=== PATIENT | female | born 1955 | race Caucasian/White ===

== ENCOUNTER 2016-09-04 08:16 | Inpatient (IN) | payer BC ==
[2016-08-18 11:06] VITALS: BMI 28.0
--- NOTE | 2016-08-18 11:47 | PAT Medication Instructions ---
Service Date Aug 18, 2016. Current Home Medication List Alendronate/Cholecalciferol (Fosamax+D 70MG/2800 Iu), 1 TABLET PO WK Cholecalciferol (Vitamin D3), 1 TAB PO BID Ibuprofen (Advil), 400-600 MG PO PRN Multivitamin (Multivitamin), 1 TAB PO DAILY Medication Instructions For Your Scheduled Surgery - Hold the following medications 7-10 days prior to surgery per surgeon instructions: Ibuprofen (Advil), 400-600 MG PO PRN - Hold the following medications the morning of surgery: Multivitamin (Multivitamin), 1 TAB PO DAILY Cholecalciferol (Vitamin D3), 1 TAB PO BID Alendronate/Cholecalciferol (Fosamax+D 70MG/2800 Iu), 1 TABLET PO WK - Take the following medications the morning of surgery with a sip of water: Tylenol (if needed) - Take the following medications as scheduled the night before surgery: Cholecalciferol (Vitamin D3), 1 TAB PO BID Tylenol (if needed) If you have any questions please call us at [phone] or [phone] ( [place]) or [phone]
--- NOTE | 2016-08-18 12:18 | DIAGNOSTIC IMAGING REPORT ---
CHEST 2 VIEWS ROUTINE CLINICAL HISTORY: Preoperative chest COMPARISON STUDY: No previous studies for comparison. FINDINGS: The cardiac and mediastinal contours are normal. There is no evidence of focal pulmonary consolidation. There is no evidence of failure. No pleural effusions are visualized.[ There is a thoracolumbar scoliosis. IMPRESSION: No active disease in the chest. Electronically signed by: Zbigniew Harris M.D. 08/18/2016 12:16 PM Dictated Date/Time: 08/18/2016 12:16 PM
[2016-08-18 12:21] LABS: BASO % 0.1 %; BASO ABS # 0.01 K/uL (0-0.2); COMPLETE YES; EOS % 0.3 %; IG% 0.1 %; LYMPH % 24.8 %; LYMPH ABS # 1.88 K/uL (1.2-3.4); MEAN CORPUSCULAR HGB CONC 35.1 g/dl (32-36); MEAN PLATELET VOLUME 9.5 fL (7.4-10.4); MONO % 4.6 %; NEUT % 70.1 %; PLATELET COUNT 238 K/uL (130-400); RED BLOOD COUNT 4.15 M/uL (4.2-5.4); WHITE BLOOD COUNT 7.57 K/uL (4.8-10.8)
[2016-08-18 12:26] LABS: URINE APPEARANCE CLEAR (CLEAR); URINE BILIRUBIN NEG (NEG); URINE COLOR YELLOW; URINE NITRITE NEG (NEG); URINE SPECIFIC GRAVITY 1.004 (1.000-1.030); UROBILINOGEN NEG (NEG); ZZUR CULT IF INDIC CLEAN CATCH NO
[2016-08-18 12:34] LABS: PARTIAL THROMBOPLASTIN RATIO 1.1; PROTHROMBIN TIME (PATIENT) 10.3 SECONDS (9.0-12.0)
[2016-08-18 12:39] LABS: MANUAL MICROSCOPIC REQUIRED? NO; REVIEW REQ? NO
[2016-08-18 13:04] LABS: BUN/CREATININE RATIO 18.2 (10-20); CALCIUM 8.6 mg/dl (8.5-10.1); CREATININE 0.63 mg/dl (0.60-1.20); POTASSIUM 3.8 mmol/L (3.5-5.1)
--- NOTE | 2016-08-31 09:09 | HISTORY & PHYSICAL EXAMINATION ---
DATE OF ADMISSION: 09/04/2016 CHIEF COMPLAINT: Left hip pain. HISTORY OF PRESENT ILLNESS: Ms. Parmar is a 61-year-old female with a 4-year history of pain in her left hip. The patient describes decreased mobility and stiffness. She rates it as 6/10. She has pain with her daily activities. She has limited standing and walking tolerance. Pain is worse with weightbearing. The patient takes anti-inflammatories without relief. She has failed conservative treatment and is scheduled for left hip replacement. PAST MEDICAL HISTORY: Negative. She denies heart disease, diabetes or DVT. PAST SURGICAL HISTORY: Tonsillectomy, inguinal hernia repair and excision of sacral cyst. SOCIAL HISTORY: The patient drinks 5 drinks per week. She smokes 4 cigarettes per day x20 years. 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 FAMILY HISTORY: Negative for DVT. MEDICATIONS: Alendronate 70 mg weekly, vitamin D3 2,000 international units b.i.d., ibuprofen 200 mg t.i.d. ALLERGIES: None. REVIEW OF SYSTEMS: See HPI. Ten other systems reviewed, all negative. PHYSICAL EXAMINATION: VITAL SIGNS: Height 5 foot 2, weight 155 pounds. BMI 28. GENERAL: This is a well-developed, well-nourished female who is alert and oriented x3. Mood and affect are appropriate. HEAD, EYES, EARS, NOSE, AND THROAT: Normocephalic, atraumatic. Mucous membranes are moist and intact. NECK: Supple without lymphadenopathy. HEART: Regular rate and rhythm without murmurs, rubs or gallops. LUNGS: Clear to auscultation without wheezes or rhonchi. ABDOMEN: Soft and nontender. Bowel sounds are equal and active. EXTREMITIES: No ecchymosis, redness or warmth. She has decreased range of motion. Pain is reproduced in the groin with motion. She is neurovascularly intact with +5/5 strength. She walks with an antalgic gait. X-RAY EXAMINATION: AP and lateral views show severe joint space narrowing and osteophyte formation in the left hip. 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 IMPRESSION: Degenerative joint disease, left hip. PLAN: The patient will be admitted for a direct anterior left total hip arthroplasty. We will plan on aspirin for DVT prophylaxis. The patient has [facility] for home physical therapy. PCP is Narcisa Thompson in [place].
[2016-09-04] VITALS (9 sets, daily range): BP systolic 95–149; BP diastolic 52–93; PULSE 68–80; TEMP 36.3–36.8; O2SAT 95–99; Ht 157.5 cm; Wt 69.5 kg
[~2016-09-04] VITALS: Ht 157.5 cm; Wt 69.5 kg
[2016-09-04] MEDS: TRANEXAMIC ACID INJ 1,000 MG in SODIUM CHLORIDE 0.9% 100ML 100 ML IV SCH ×2 (06:30→10:05)
[~2016-09-04 08:16] MED LIST: ACETAMINOPHEN 500 MG TAB PO SCH; ATROPINE SULFATE 0.1 MG/ML 5ML SYR IV PRN; BUPIVACAINE 0.5 % 5 MG/1 ML PF 10ML VIAL ONE; CEFAZOLIN 2000 MG/60 ML D5W 60 ML IV SCH; CHOL20007 PO; CeleBREX 200 MG CAP PO SCH; DEXAMETHASONE 4 MG TAB PO SCH; EpHEDrine SULFATE INJ 50 MG/ML AMP IV PRN; FAMOTIDINE 20 MG TAB PO SCH; FENTANYL CITRATE INJ 50 MCG/1 ML 2 ML VIAL IV PRN; FENTANYL CITRATE INJ 50 MCG/1 ML 2 ML VIAL ONE; FSMD/70 PO; GABAPENTIN 300 MG CAP PO SCH; IBUP-1050 PO; LACTATED RINGER'S 1000ML 1,000 ML IV SCH; LACTATED RINGER'S 1000ML 500 ML IV ONE; METOCLOPRAMIDE HCL 10 MG TAB PO SCH; MIDAZOLAM HCL 1 MG/ML 2ML VIAL ONE; MULT-506 PO; ONDANSETRON INJ 2 MG/ML 2 ML VIAL IV PRN; OXYCODONE HCL 10 MG TABCR (OXYCONTIN) PO SCH; POLYMYXIN B SULFATE 100,000 UNITS in NSS 100ML IR SCH; PROPOFOL IV EMULSION 10 MG/ML 20 ML VIAL IV ONE; ROPIVACAINE 5MG/ML 30 ML 150 MG, BUPIVACAINE/EPINEPHR 0.5% MPF 30 ML, KETOROLAC TROMETH... INFIL SCH; VANCOMYCIN INJ 400 MG in NSS 100ML IR SCH
--- NOTE | 2016-09-04 09:18 | History & Physical Bridge Note ---
H&P Re-Evaluation Bridge Note: I have examined the patient, reviewed the History & Physical and in the interval since the performance of the History & Physical I have noted the following changes of clinical significance: No changes noted
[2016-09-04] MEDS ORDERED: ORTHO JOINT ANESTHETIC ONE (09:49)
[2016-09-04] MEDS ORDERED: PHENYLEPHRINE 100MCG/ML 5ML SYR ONE (10:46)
[2016-09-04] MEDS ORDERED: MIDAZOLAM HCL 1 MG/ML 2ML VIAL ONE (10:52)
[2016-09-04] MEDS ORDERED: BACITRACIN 50000 UNIT VIAL IR ONE (11:04)
[2016-09-04] MEDS ORDERED: POVIDONE-IODINE OP SOLN 30 ML BTL TOP ONE (11:04)
[2016-09-04] MEDS ORDERED: EpHEDrine SULFATE 50MG/5ML SYR ONE (11:47)
--- NOTE | 2016-09-04 11:53 | [facility] Post Operative Brief Note ---
Immediate Operative Summary Operative Date Sep 04, 2016. Pre-Operative Diagnosis Degenerative joint disease left hip Post-Operative Diagnosis same as preoperative Procedure(s) Performed Left Total Hip Arthroplasty, Direct Anterior Approach Surgeon Dr. Thorne Chief Medical Director Surgeon(s) Yael Moran PA-C Estimated Blood Loss 75ML Findings SEVERE DZ Specimens A. left femoral head Complication(s) None Disposition Recovery Room / PACU
[2016-09-04] MEDS ORDERED: METOCLOPRAMIDE HCL INJ 5 MG/ML 2 ML VIAL IV PRN (12:00)
[2016-09-04] MEDS ORDERED: BISACODYL 10 MG SUPP PR PRN (12:00)
[2016-09-04] MEDS ORDERED: OXYCODONE HCL IR 5 MG TAB (IMMEDIATE RELEASE) PO PRN (12:00)
[2016-09-04] MEDS ORDERED: TRAMADOL HCL 50 MG TAB PO PRN (12:00)
[2016-09-04] MEDS ORDERED: DiphenhydrAMINE HCL 50 MG/ML VIAL IV PRN (12:00)
[2016-09-04] MEDS ORDERED: ALUMINUM/MAGNESIUM/SIMETH (MAALOX MAX) 30 ML UDC PO PRN (12:00)
[2016-09-04] MEDS ORDERED: SOD PHOSPHATE/SOD BIPHOSPHATE ENEMA 132 ML BTL PR PRN (12:00)
[2016-09-04] MEDS ORDERED: MoRPHine SULFATE 2 MG/ML CARP IV PRN (12:00)
[2016-09-04] MEDS ORDERED: ONDANSETRON INJ 2 MG/ML 2 ML VIAL IV PRN (12:00)
[2016-09-04] MEDS ORDERED: ZOLPIDEM TARTRATE 5 MG TAB PO PRN (12:00)
[2016-09-04] MEDS ORDERED: MAGNESIUM HYDROXIDE SUSP 30 ML UDC PO PRN (12:00)
--- NOTE | 2016-09-04 12:09 | DIAGNOSTIC IMAGING REPORT ---
INTRAOPERATIVE FLUOROSCOPIC IMAGE OF THE LEFT HIP CLINICAL HISTORY: Left hip arthroplasty COMPARISON STUDY: No previous studies for comparison. FLUOROSCOPY TIME: 20 seconds. FINDINGS: A single AP fluoroscopic image of the left hip demonstrates anatomic alignment of left hip arthroplasty. No fracture is identified. IMPRESSION: Expected intraoperative findings during left hip arthroplasty. Electronically signed by: Erik Billy M.D. 09/04/2016 12:07 PM Dictated Date/Time: 09/04/2016 12:06 PM
--- NOTE | 2016-09-04 12:53 | DIAGNOSTIC IMAGING REPORT ---
LEFT PELVIS/UNILATERAL HIP 1 VIEW CLINICAL HISTORY: Left hip degenerative arthritis. Arthroplasty. COMPARISON: Intraoperative fluoroscopic images performed earlier today. FINDINGS: Alignment of the total left hip arthroplasty is anatomic. There is no fracture or unexpected radiopaque foreign body. Drain is in place. There is an acetabular screw. IMPRESSION: Expected findings following total left hip arthroplasty. Electronically signed by: Erik Billy M.D. 09/04/2016 12:51 PM Dictated Date/Time: 09/04/2016 12:50 PM
--- NOTE | 2016-09-04 13:00 | Anesthesiology Progress Note ---
Anesthesia Post Op Note Date & Time Sep 04, 2016 at 13:00 Vital Signs Pain Intensity: 0 Vital Signs Past 12 Hours Date Time Temp Pulse Resp B/P Pulse Ox O2 Delivery O2 Flow Rate FiO2 09/04/16 12:33 102/65 09/04/16 12:32 78 16 09/04/16 12:32 76 16 94 09/04/16 12:28 114/60 09/04/16 12:27 76 14 93 09/04/16 12:27 76 14 09/04/16 12:23 107/63 09/04/16 12:22 86 17 97 09/04/16 12:22 83 17 09/04/16 12:18 116/71 09/04/16 12:17 79 17 09/04/16 12:17 78 17 96 09/04/16 12:17 36.2 89 16 102/67 96 Nasal Cannula 10 09/04/16 08:40 36.8 80 20 149/93 95 Room Air Notes Mental Status: alert / awake / arousable, participated in evaluation Pt Amnestic to Procedure: Yes Nausea / Vomiting: adequately controlled Pain: adequately controlled Airway Patency, RR, SpO2: stable & adequate BP & HR: stable & adequate Hydration State: stable & adequate Neuraxial Anesthesia: was administered, sensory block is resolving Anesthetic Complications: no major complications apparent
[2016-09-04] MEDS: D5W AND 1/2NSS + 20MEQ KCL 1,000 ML IV SCH ×2 (14:58→23:35)
[2016-09-04] MEDS: KETOROLAC TROMETHAMINE 30 MG/ML VIAL IV. SCH ×2 (17:49→23:35)
[2016-09-04] MEDS: CEFAZOLIN IV 2,000 MG in DEXTROSE 5% 50ML 50 ML IV SCH (17:49)
--- NOTE | 2016-09-04 18:00 | OPERATIVE REPORT ---
DATE OF OPERATION: 09/04/2016 PREOPERATIVE DIAGNOSIS: Degenerative arthritis, left hip. POSTOPERATIVE DIAGNOSIS: Same. PROCEDURE: Left total hip replacement. SURGEON: Jakob Thorne M.D. [employer] MEMBER: COREY Bacon ANESTHESIA: Spinal. BLOOD LOSS: 75 mL. REPLACEMENT FLUIDS: 1500 mL crystalloid. DRAINS: Hemovacs x1. CULTURES: None. COMPLICATIONS: None. COMPONENTS USED: [employer]hew polar hip system: Acetabulum size 50, femur size 6 standard offset, femoral head, +4, 32 mm. NOTE: COREY Bacon was present and assisted throughout due to the complicated nature of this case. She helped with preparation and set up, first assisted throughout and personally closed the muscle fascial, subcutaneous and skin layers and applied the postop dressing. DESCRIPTION: Following satisfactory spinal, the patient was supine. The right leg was placed in the well leg cartwright, the left leg in the traction device. The leg was prepared with ChloraPrep and draped sterilely. Following a surgical time-out, an anterior approach in the interval between the sartorius and tensor muscles was completed, the circumflex femoral vessels were identified and ligated and an anterior capsulotomy performed exposing a severely arthritic femoral neck and head. The femoral neck and head were trimmed and removed. The acetabular self-retaining retractor was placed. Acetabular preparation and reaming was completed and under fluoroscopic guidance, a 50 shell was impacted into an anatomic position and secured with a dome screw. Local anesthetic was placed and after irrigation, the poly liner was placed. The femur was placed into a position of external rotation, extension and adduction. The femoral canal was prepared up to the size 6. A trial reduction with a +4 head showed equalization of leg lengths using fluoroscopic landmarks and good fit and fill of the proximal canal using fluoroscopic evaluation. The hip was dislocated. The trial component removed. The final implant was placed and the wound was irrigated. The hip was reduced with fluoroscopy confirming the position. A Betadine soak was performed. After 5 minutes, the Betadine was irrigated. The capsule was closed with 1 Vicryl interrupted. A drain was placed. The fascia was closed with a running suture of 1 Vicryl, the subcutaneous tissues with 2-0 Vicryl and the skin with a running subcuticular stitch of 3-0 V-Loc. Dermabond and a dry dressing were applied. The patient was returned to her bed in stable condition. I attest to the content of the Intraoperative Record and any orders documented therein. Any exceptio ns are noted below.
[2016-09-04] MEDS ORDERED: TRANEXAMIC ACID INJ 1,000 MG in SODIUM CHLORIDE 0.9% 100ML 100 ML IV SCH (18:30)
[2016-09-04] MEDS ORDERED: SENNA 8.6 MG TAB PO SCH (21:00)
[2016-09-04] MEDS: ASPIRIN 81 MG ECTAB PO SCH (21:06)
[2016-09-04] MEDS: ACETAMINOPHEN 500 MG TAB PO SCH (21:35)
[2016-09-05] MEDS: CEFAZOLIN IV 2,000 MG in DEXTROSE 5% 50ML 50 ML IV SCH (01:41)
[2016-09-05] MEDS: KETOROLAC TROMETHAMINE 30 MG/ML VIAL IV. SCH ×2 (05:40→11:22)
[2016-09-05] MEDS: ACETAMINOPHEN 500 MG TAB PO SCH ×2 (05:40→13:29)
[2016-09-05 06:00] LABS: BASO % 0.1 %; BASO ABS # 0.01 K/uL (0-0.2); COMPLETE YES; HEMATOCRIT 30.8 % (37-47); IG% 0.2 %; LYMPH % 8.2 %; LYMPH ABS # 1.07 K/uL (1.2-3.4); MEAN CELL VOLUME 95.7 fL (80-100); MEAN CORPUSCULAR HEMOGLOBIN 33.2 pg (25-34); MEAN CORPUSCULAR HGB CONC 34.7 g/dl (32-36); MONO % 9.3 %; NEUT % 82.2 %; PLATELET COUNT 194 K/uL (130-400); RED BLOOD COUNT 3.22 M/uL (4.2-5.4); WHITE BLOOD COUNT 13.08 K/uL (4.8-10.8)
[2016-09-05 06:32] LABS: BUN/CREATININE RATIO 18.5 (10-20); CALCIUM 7.7 mg/dl (8.5-10.1); CREATININE 0.64 mg/dl (0.60-1.20); POTASSIUM 4.1 mmol/L (3.5-5.1)
[2016-09-05 07:00] VITALS: BP 102/63; PULSE 67; TEMP 36.7; O2SAT 98
--- NOTE | 2016-09-05 08:06 | Anesthesiology Progress Note ---
Anesthesia Post Op Note Date & Time Sep 05, 2016 at 08:06 Vital Signs Vital Signs Past 12 Hours Date Time Temp Pulse Resp B/P Pulse Ox O2 Delivery O2 Flow Rate FiO2 09/05/16 07:00 36.7 67 16 102/63 98 Room Air 09/04/16 23:30 Room Air 09/04/16 23:23 36.6 68 16 95/52 98 Room Air Notes Mental Status: alert / awake / arousable, participated in evaluation Pt Amnestic to Procedure: Yes Nausea / Vomiting: adequately controlled Pain: adequately controlled Airway Patency, RR, SpO2: stable & adequate BP & HR: stable & adequate Hydration State: stable & adequate Neuraxial Anesthesia: was administered, sensory block resolved Anesthetic Complications: no major complications apparent
--- NOTE | 2016-09-05 08:17 | Discharge Instructions ---
Discharge Instructions Admission Reason for Admission: Left Hip Degenerative Arthritis Discharge Discharge Diagnosis / Problem: SP LEFT MOE Discharge Goals Goal(s): Decrease discomfort, Improve function, Increase independence Activity Recommendations Activity Limitations: per Instructions/Follow-up section . Instructions / Follow-Up Instructions / Follow-Up ACTIVITY RECOMMENDATIONS: SELF CARE INSTRUCTIONS AFTER TOTAL HIP REPLACEMENT : Direct Anterior Approach Until the incision and soft tissues around your hip have healed, there is a possibility that the hip prosthesis could dislocate. A. Hip flexion ( Up & Down out of chair or steps ) may be difficult. This is normal. B. Numbness in front of the thigh is also normal for a few weeks. C. Use hand rails when walking on stairs. D. Wear low heeled shoes with non-slip soles. E. Be sure that your floors are free of things that could trip you - throw rugs , electrical cords, small objects. Avoid wet and waxed floors, especially with crutches and canes. F. Try to walk several times a day with rest periods between. G. Continue with all the exercises taught to you in the hospital. Again, make walking a part of your daily routine. SPECIAL CARE INSTRUCTIONS: VERY IMPORTANT TO READ AND REVIEW A. You may still be at risk for phlebitis and blood clots. 1. Wear surgical stockings (ROSARIO hose) for 2 weeks after surgery to improve circulation and reduce swelling. 2. Take Aspirin 81mg twice daily for 4 weeks or as directed by your doctor. This is your blood thinner. 3. High risk patients may be prescribed a stronger blood thinner if necessary. 4. If you are on Coumadin normally, your family doctor/fish icer should monitor your blood work. Expect a phone call the day of or the day after bloodwork is drawn to adjust your dosage. B. You must take antibiotics before having dental work, bladder, bowel and other surgery. Your doctor will provide you with a permanent card to carry describing precautions. C. Call [facility] if you have a fever, redness or swelling around the incision, cloudy drainage from incision, or sudden increase in pain in your hip, not relieved by your regular pain medication. D. Please call the office at if you have any concerns or questions about your operation or recovery. * YOU MAY SHOWER, NO TUB BATHS UNTIL CLEARED BY YOUR DOCTOR. - Keep an extra close eye on the top portion of your incision. Be sure to keep clean & dry. * WEAR ROSARIO HOSE 20 HOURS PER DAY FOR 2 WEEKS. * YOU MAY PROGRESS FROM A WALKER, TO A CANE, TO INDEPENDENT AT YOUR OWN PACE. * MOST PATIENTS WILL HAVE HOME NURSING FOR THERAPY. IF YOU DECIDE TO DO OUTPATIENT PHYSICAL THERAPY, PLEASE SCHEDULE THIS 3 TIMES PER WEEK. * DERMABOND Prineo- This is a mesh tape dressing that is covered with glue. It should remain in place until the incision is properly healed, usually 10-14 days. This dressing is designed to naturally slough off. You may trim the excess mesh tape as it peels off. Incision may be briefly wet in a shower. Dry immediately by blotting with a clean, dry towel. Do not bath or swim until instructed by your doctor. Do not scratch, rub, or pick at the dressing. Do not apply any topical ointments or lotions until dressing is completely removed and/or instructed by your doctor. There may be a small piece of suture material at one end of your incision. Do not pull or trim this. If it is bothersome or catching on clothing, you may cover it with a band-aid. FOLLOW UP VISIT: If appointment is not already scheduled: Please call [facility] to make a follow-up appointment for 2 weeks after your surgery at . Current Hospital Diet Patient's current hospital diet: Regular Diet Discharge Diet Recommended Diet: Regular Diet Procedures Procedures Performed: Left Total Hip Arthroplasty, Direct Anterior Approach Pending Studies Studies pending at discharge: no Medical Emergencies . Who to Call and When: Medical Emergencies: If at any time you feel your situation is an emergency, please call 911 immediately. . Non-Emergent Contact Non-Emergency issues call your: Primary Care Provider . "Provider Documentation" section prepared by Yael Moran. VTE Core Measure Inpt VTE Proph given/why not?: Other Anticoagulation, T.E.D. Stockings, SCD's
[2016-09-05] MEDS ORDERED: ACET-1138 PO (08:18)
[2016-09-05] MEDS ORDERED: CLB200 PO (08:18)
[2016-09-05] MEDS ORDERED: ASPEC81 PO (08:18)
[2016-09-05] MEDS ORDERED: RXC5 PO (08:18)
[2016-09-05] MEDS ORDERED: SNK PO (08:18)
[2016-09-05] MEDS ORDERED: ONDA8TAB6 PO (08:18)
--- NOTE | 2016-09-05 08:37 | DISCHARGE SUMMARY ---
DISCHARGE DIAGNOSIS: Degenerative joint disease, left hip. SECONDARY DIAGNOSIS: None. CONSULTS: None. COMPLICATIONS: None. PROCEDURE: The patient underwent a left total hip arthroplasty, direct anterior with Dr. Thorne on 09/04/2016. BRIEF HISTORY: Please see previously dictated history and physical. HOSPITAL SUMMARY: The patient was admitted on the above day for the above procedure. Procedure went without complication. Postop day 1, the patient was feeling well without complaints. She denied chest pain or shortness of breath. Vital signs were stable. She was afebrile. Dressing was clean, dry and intact. She was neurovascularly intact. Calves were soft and nontender. Hemovac drained 170 and 150 mL Hemoglobin was 10.7. The patient began physical therapy per protocol. She was discharged to home later that day in stable condition. For further review, please see the chart. Lab, x-ray data and discharge instructions as per chart.
[2016-09-05] MEDS: ASPIRIN 81 MG ECTAB PO SCH (08:47)
[2016-09-05] MEDS ORDERED: MULTIVITAMIN TAB PO SCH (09:00)
[2016-09-05] MEDS ORDERED: PANTOprazole SOD 40 MG TAB PO SCH (09:00)
[2016-09-05 10:55] VITALS: BP 114/71; PULSE 61; TEMP 36.8; O2SAT 99
[2016-09-05] MEDS: D5W AND 1/2NSS + 20MEQ KCL 1,000 ML IV SCH (11:00)
[2016-09-05 13:17] VITALS: BP 114/71; PULSE 61; TEMP 36.8; O2SAT 99
[2016-09-06] MEDS ORDERED: CeleBREX 200 MG CAP PO SCH (21:00)
== END 2016-09-05 14:28 | disposition home health service (06) | DRG 470 ==
LOC: ENRESERVDT → ENRESERVTM → C.ACU 08:16 → C.3E 11:56 → CMPBEDREQ 14:38
PROVIDERS: ADMIT Orthopaedic Surgery; ATTEND Orthopaedic Surgery
PROC: 0SRB04Z Replacement of Left Hip Joint with Ceramic on Polyethylene Synthetic Substitute, Open Approach (ICD-10-PCS; principal; 2016-09-04 10:00)
DX: M16.12 Unilateral primary osteoarthritis, left hip (principal); M81.0 Age-related osteoporosis without current pathological fracture; F17.210 Nicotine dependence, cigarettes, uncomplicated; Z79.83 Long term (current) use of bisphosphonates